=== PATIENT | female | born 1970 | race Caucasian/White ===

== ENCOUNTER 2018-09-22 05:21 | Day surgery (SDC) | payer BC ==
[2018-09-20 11:22] LABS: HEMATOCRIT 44.3 % (36.0-47.0); HEMOGLOBIN 15.3 g/dL (12.0-15.5); MEAN CORPUSCULAR HEMOGLOBIN 30.9 pg (27.0-33.4); MEAN CORPUSCULAR HGB CONC 34.4 g/dL (32.0-36.0); MEAN CORPUSCULAR VOLUME 90 fl (80-97); PLATELET COUNT 305 10^3/uL (150-450); RED BLOOD COUNT 4.94 10^6/uL (3.72-5.28); RED CELL DISTRIBUTION WIDTH 12.8 % (11.5-14.0); WHITE BLOOD COUNT 5.2 10^3/uL (4.0-10.5)
[2018-09-20 11:28] LABS: APPEARANCE,URINE CLEAR; BILIRUBIN,URINE NEGATIVE (NEGATIVE); COLOR,URINE STRAW; GLUCOSE, URINE NEGATIVE (NEGATIVE); KETONES,URINE NEGATIVE (NEGATIVE); LEUKOCYTE ESTERASE,URINE NEGATIVE (NEGATIVE); NITRITE,URINE NEGATIVE (NEGATIVE); PROTEIN,URINE NEGATIVE (NEGATIVE); URINE SPECIFIC GRAVITY 1.006; UROBILINOGEN,URINE NEGATIVE mg/dL (<2.0)
[2018-09-20 11:40] LABS: ANION GAP 10 (5-19); BLOOD UREA NITROGEN 13 mg/dL (7-20); CALCIUM 10.4 mg/dL (8.4-10.2); CARBON DIOXIDE 26 mmol/L (22-30); CHLORIDE 102 mmol/L (98-107); GLUCOSE 87 mg/dL (75-110)
[~2018-09-22 05:21] MED LIST: CEFAZOLIN 1 GM/D5W RTU 1 GM/50 ML RTUPB IV ONE; CEFAZOLIN 1 GM/D5W RTU 1 GM/50 ML RTUPB IV PRN; LACTATED RINGERS 1000 ML IV PRN; LIDOCAINE 0.5% INJ-PF (5 MG/ML) 50 ML SDV SUBCUT PRN
[2018-09-22] MEDS ORDERED: FENTANYL CITRATE INJ/PF 100 MCG/2 ML AMPUL ONE ×2 (06:57→08:29)
[2018-09-22] MEDS ORDERED: EPHEDRINE SULFATE INJ 50 MG/1 ML AMPULE ONE (06:58)
[2018-09-22] MEDS ORDERED: PROPOFOL INJ 200 MG/20 ML VIAL IV ONE (06:58)
[2018-09-22] MEDS ORDERED: DEXMEDETOMIDINE INJ 80 MCG/20 ML VIAL IV ONE (06:58)
[2018-09-22] MEDS ORDERED: ACETAMINOPHEN 1,000 MG/100 ML RTUPB IV ONE (06:58)
[2018-09-22] MEDS ORDERED: MIDAZOLAM 2 MG/2 ML INJ ONE (06:58)
[2018-09-22] MEDS ORDERED: SUGAMMADEX SODIUM 200 MG/2 ML SDV IV ONE (07:09)
[2018-09-22] MEDS ORDERED: FENTANYL CITRATE INJ/PF 100 MCG/2 ML AMPUL IV PRN ×2 (08:22)
[2018-09-22] MEDS ORDERED: ONDANSETRON HCL INJ/PF 4 MG/2 ML SDV IV PRN (08:22)
[2018-09-22] MEDS ORDERED: PROMETHAZINE HCL INJ 25 MG/1 ML VIAL IV PRN ×2 (08:22)
[2018-09-22] MEDS ORDERED: DIPHENHYDRAMINE HCL 50 MG/ML VIAL IV PRN (08:22)
[2018-09-22] MEDS ORDERED: PROMETHAZINE HCL INJ 25 MG/1 ML VIAL IM PRN (08:29)
[2018-09-22] MEDS ORDERED: OXYCODONE-ACETAMINOPHEN 5-325 MG TABLET PO PRN (08:29)
[2018-09-22] MEDS ORDERED: MORPHINE SULFATE 10 MG/ML INJ IM PRN (08:29)
[2018-09-22] MEDS: FENTANYL CITRATE INJ/PF 100 MCG/2 ML AMPUL IV PRN ×2 (08:30→09:05)
[2018-09-22] MEDS ORDERED: OXYCODONE-ACETAMINOPHEN 5-325 MG TABLET ONE (09:51)
[2018-09-22] MEDS ORDERED: IBUPROFEN 800 MG TABLET PO SCH (10:00)
[2018-09-22] MEDS ORDERED: KETOROLAC TROMETHAMINE 60 MG/2 ML SDV ONE (10:12)
[2018-09-22] MEDS ORDERED: ROCURONIUM BROMIDE INJ 50 MG/5 ML VIAL IV ONE (10:12)
[2018-09-22] MEDS ORDERED: DEXAMETHASONE SOD PHOSPHATE INJ 4 MG/1 ML VIAL ONE (10:12)
[2018-09-22] MEDS ORDERED: ONDANSETRON HCL INJ/PF 4 MG/2 ML SDV ONE (10:12)
[2018-09-22] MEDS ORDERED: LIDOCAINE 2% INJ-PF (20 MG/ML) 2 ML AMPUL ONE (10:12)
[2018-09-22] MEDS ORDERED: METOCLOPRAMIDE HCL INJ/PF 10 MG/2 ML SDV ONE (10:12)
[2018-09-22] MEDS ORDERED: SUCCINYLCHOLINE CHLORIDE INJ 200 MG/10 ML VIAL ONE (10:12)
[2018-09-22 10:51] VITALS: BP 127/84
--- NOTE | 2018-09-25 11:54 | OPERATIVE REPORT E ---
Operative Report NAME: ROBERTO FREEMAN : 1970 AGE: 48Y DATE OF SURGERY: 09/22/2018 ROOM: PREOPERATIVE DIAGNOSIS: Desires permanent sterilization. POSTOPERATIVE DIAGNOSIS: Desires permanent sterilization. PROCEDURE: Open laparoscopic Filshie clip sterilization x2. SURGEON: KINGS STRICKLAND M.D. COMPLICATIONS: None. ANESTHESIA: General endotracheal. FINDINGS: Normal-appearing uterus, tubes, ovaries, appendix, and upper abdomen. INDICATIONS FOR PROCEDURE: The patient desired permanent sterilization. for 10 years. The usual risks of bleeding, infection, anesthesia, and damage to organs and tissues has been discussed and the patient understood. She desired sterilization. DESCRIPTION OF PROCEDURE: The patient was taken to the operating room and placed in the modified lithotomy position. After adequate anesthesia was ascertained, prepped and draped in the usual manner for an open laparoscopy. Surgical timeout performed, EUA performed. . Hulka tenaculum placed on the anterior lip of the cervix. The cervix . The scope was inserted and the above noted findings were appreciated. one on each tube approximately 1 cm from the uterine fundus on the anterior mesenteric border of the tube with the width of the entire tube. . Photographs were taken. Survey was completed. Gas was removed. Umbilical stitch was placed and 0 Vicryl stitch for the fascia. . Hulka tenaculum was removed. . DICTATING PHYSICIAN: KINGS STRICKLAND M.D. [id number] PHY#: [id number] ID: [id number] JOB#: [id number] ACCT: [id number] cc:KINGS STRICKLAND M.D. >
== END 2018-09-22 10:45 | disposition home or self-care (01) ==
LOC: OROUT 05:21
PROVIDERS: ATTEND Specialist
DX: Z30.2 Encounter for sterilization (principal); E78.00 Pure hypercholesterolemia, unspecified; Z79.899 Other long term (current) drug therapy; Z88.2 Allergy status to sulfonamides
CPT/HCPCS: 86900; 86901; 36415; 86850; 85027; 81025; 80048; 81001; 58671; J2250; J0690; J3490 ×3; J1100; J1885; J3010; J2765; J0330; J2405; J2704; J0131; 851

== ENCOUNTER → 2019-04-25 | Outpatient (CLI) | payer BC ==
--- NOTE | 2019-04-25 15:14 | WOMENS IMAGING REPORT ---
EXAM DESCRIPTION: BILAT DIAGNOSTIC MAMMO W/CAD; U/S BREAST UNILAT LIMITED COMPLETED DATE/TIME: 04/25/2019 11:36 am; 04/25/2019 12:56 pm REASON FOR STUDY: N64.4 MASTODYNIA; RT BREAST PAIN N64.4 N64.4 MASTODYNIA COMPARISON: 2011 through 2014. EXAM PARAMETERS: Standard craniocaudal and mediolateral oblique views of each breast recorded using digital acquisition. Right true lateral view. Targeted right breast ultrasound to the anterior breast region of pain. Read with the assistance of CAD: .[facility] - R2 [employer] Version 9.2 LIMITATIONS: None. FINDINGS: RIGHT BREAST MASSES: No suspicious masses. CALCIFICATIONS: No new or suspicious calcifications. ARCHITECTURAL DISTORTION: None. DEVELOPING DENSITY: None. ASYMMETRY: None noted. OTHER: No other significant findings. LEFT BREAST MASSES: No suspicious masses. CALCIFICATIONS: No new or suspicious calcifications. ARCHITECTURAL DISTORTION: None. DEVELOPING DENSITY: None. ASYMMETRY: None noted. OTHER: No other significant finding. Ultrasound: Ovoid well-circumscribed wider than tall 4 mm hypoechoic mass at 12 o'clock, periareolar . No suspicious features, but not clearly a simple cyst. No duct dilatation. No distortion. IMPRESSION: No overtly worrisome findings. Tiny mass in the right breast, subcentimeter. No overtl y suspicious features. BREAST DENSITY: c. The breasts are heterogeneously dense, which may obscure small masses. BIRAD: ASSESSMENT: 3 Probably benign finding. Initial short-interval follow-up suggested. RECOMMENDATION: RECOMMENDED FOLLOW UP: 6 month followup repeat ultrasound imaging to exclude progres gege of the above-noted right breast mass. SPECIFIC INTERVENTION/IMAGING/CONSULTATION RECOMMENDED:No additional intervention/ imaging/consultati on needed at this time. COMMUNICATION:The negative/benign results were communicated to the patient. COMMENT: The patient has been notified of the results by letter per MQSA requirements. Additional no tification policies are in place for contacting patient with suspicious or incomplete findings. Quality ID #225: The [employer] recommends an annual screening mammogram for women aged 40 years or over. This facility utilizes a reminder system to ensure that all patients receive reminder letters, and/or direct phone calls for appointments. This includes reminders for routine scr eening mammograms, diagnostic mammograms, or other Breast Imaging Interventions when appropriate. Th is patient will be placed in the appropriate reminder system. TECHNICAL DOCUMENTATION: FINDING NUMBER: (1) ASSESSMENT: (1) JOB ID: [id number] [employer]- All Rights Reserved Reading location - IP/workstation name: [email or web address]
== END ==
LOC: WI 11:12
PROVIDERS: ATTEND Obstetrics & Gynecology Gynecology
DX: N64.4 Mastodynia (principal)
CPT/HCPCS: 76642; 77066